=== PATIENT | male | born 1955 | race Caucasian/White ===

== ENCOUNTER 2016-12-29 02:37 | Observation (INO) ==
[2016-12-29] MEDS ORDERED: Aspirin 81 MG TAB.CHEW PO ONE (03:04)
[2016-12-29] MEDS ORDERED: Nitroglycerin 0.4 MG TAB.SUBL SL ONE (03:04)
--- NOTE | 2016-12-29 03:22 | Emergency Department Note ---
Disposition Clinical Impression: Chest pain Qualifiers: Chest pain type: precordial pain Qualified Code(s): R07.2 - Precordial pain Disposition: Admitted As Inpatient Condition: Good Referrals: NONE,PCP [Non-Partnered Physician] - Forms: ED Satisfaction Letter Chest Pain HPI - General Chief Complaint: ED Chest Pain Stated Complaint: chest pain/nausea Time Seen by Provider: 12/29/16 02:56 Source: patient, family Mode of arrival: private vehicle Limitations: no limitations Vital Signs Reviewed: Yes Nursing Notes Reviewed: Yes - History of Present Illness Pt complaint: chest pain Onset (ago): hour(s) Duration: intermittent Onset: during exertion (working outside in the yard) Pain Location: left chest Severity: moderate Severity scale (1-10): 4 Quality: aching, heaviness, dull Pain Radiation: none Improves with: rest Worsens with: exertion Associated symptoms: Denies: nausea, vomiting, diaphoresis, dyspnea, sense of impending doom, syncope, palpitations, fever, cough, leg swelling Treatments prior to arrival chest pain: none - Related Data Allergies Allergy/AdvReac Type Severity Reaction Status Date / Time No Known Allergies Allergy Verified 12/29/16 02:45 All systems ED: reviewed and negative except as stated. Constitutional: Denies: fever, chills, weakness, weight change, night sweats Eyes: Denies: vision change ENT ED: Denies: ear pain, throat pain, congestion, dysphagia Cardiovascular: Reports: as per HPI, chest pain, dyspnea on exertion. Denies: palpitations, orthopnea, edema, syncope Respiratory: Reports: dyspnea. Denies: cough, wheezes, hemoptysis, stridor, sputum production Gastrointestinal: Denies: abdominal pain, nausea, vomiting Musculoskeletal: Denies: back pain, neck pain, joint swelling, arthralgia Neurological: Denies: headache, weakness, numbness, paresthesias Hematological/Lymphatic: Denies: easy bleeding, easy bruising Chest Pain PMH - Past Medical History Medical history: Reports: asthma Surgical history: Reports: non-contributory Psychiatric history: Reports: depression - Social History Smoking Status: Never smoker Alcohol use: Reports: none Drug use: Reports: none Physical Exam - General Limitations: no limitations General appearance: alert, in no apparent distress - Head Head exam: atraumatic, normocephalic, normal inspection - Eye Eye exam: Present: normal appearance, PERRL. Absent: scleral icterus, conjunctival injection, periorbital swelling - ENT ENT exam: mucous membranes moist - Neck Neck exam: Present: normal inspection, full ROM, trachea midline. Absent: meningismus - Chest Chest inspection: Present: normal inspection, symmetric chest wall rise. Absent : tenderness - Respiratory Respiratory exam: Present: normal lung sounds bilaterally. Absent: respiratory distress, wheezes, stridor, accessory muscle use, prolonged expiratory phase - Cardiovascular Cardiovascular exam: Present: normal rhythm, tachycardia, normal heart sounds - Abdominal Exam Abdominal exam: Present: soft, Non-Tender. Absent: distention, guarding, rebound, rigidity, mass - Extremities Exam Extremities exam: Present: normal inspection, full ROM, normal capillary refill. Absent: pedal edema, calf tenderness - Back Exam Back exam: Present: normal inspection, full ROM. Absent: tenderness - Neurological Exam Neurological exam: Present: alert, oriented X3, CN II-XII intact, normal gait - Psychiatric Psychiatric exam: Present: normal affect, anxious - Skin Skin exam: Present: warm, dry, intact, normal color Course Course Narrative: Patient presents from home with his significant other for evaluation of chest pain that started yesterday around 3 PM. He was outside working in the yard when the pain began. It got better when he stopped working and rested. He has felt a little short of breath at times. He denies feeling short of breath right now. He also denies fever, chills, nausea or vomiting. He has a history of asthma and denies recent exacerbation. He denies recent leg pain or swelling procedures surgery or long sedentary periods. His EKG shows a sinus tachycardia rate of [address] elevation or depression. It is unchanged compared to previous. Patient has never had a heart Cath. His last stress test was more than five years ago. We will treat his symptoms. Obtain a chest x-ray and screening labs. Patient's troponin is normal. X-ray is essentially normal. He is feeling better after a nitroglycerin and aspirin. He has been seen by Dr. Lamas, who agrees with the assessment and plan to admit the patient for rule out Vital Signs Temperature 97.5 F L 12/29/16 02:41 Pulse Rate 113 12/29/16 02:41 Respiratory Rate 16 12/29/16 02:41 Blood Pressure 194/83 12/29/16 02:41 O2 Sat by Pulse Oximetry 95 12/29/16 02:41 Temperature 97.5 F L 12/29/16 02:41 Pulse Rate 113 12/29/16 02:41 Respiratory Rate 16 12/29/16 02:41 Blood Pressure 194/83 12/29/16 02:41 O2 Sat by Pulse Oximetry 95 12/29/16 02:41 Oxygen Delivery Oxygen Delivery Room Air Chest Pain - Medical Records Medical records reviewed: Yes I reviewed the patient's medical records. - Lab Data Lab results reviewed: Yes I reviewed the patient's lab results. Lab results narrative: Laboratory Last Values WBC 6.3 K/mcL (4.3-11.1) 12/29/16 03:15 RBC 4.65 M/mcL (4.19-5.50) 12/29/16 03:15 Hgb 13.6 g/dL (12.9-16.9) 12/29/16 03:15 Hct 40.9 % (37.5-50.1) 12/29/16 03:15 MCV 88.0 fL (83.0-100.0) 12/29/16 03:15 MCH 29.2 pg (28.0-33.3) 12/29/16 03:15 MCHC 33.3 g/dL (31.6-35.5) 12/29/16 03:15 RDW 13.2 % (11.5-14.5) 12/29/16 03:15 Plt Count 204 K/mcL (140-400) 12/29/16 03:15 MPV 8.7 fL (9.4-12.4) L 12/29/16 03:15 Immature Gran % 0.3 % (0-4) 12/29/16 03:15 Seg Neutrophils % 53.7 % 12/29/16 03:15 Lymphocytes % 33.5 % 12/29/16 03:15 Monocytes % 9.6 % 12/29/16 03:15 Eosinophils % 2.6 % 12/29/16 03:15 Basophils % 0.3 % 12/29/16 03:15 Neutrophils # 3.4 K/mcL (1.6-8.9) 12/29/16 03:15 Lymphocytes # 2.1 K/mcL (0.6-4.6) 12/29/16 03:15 Monocytes # 0.6 K/mcL (0.0-1.3) 12/29/16 03:15 Eosinophils # 0.2 K/mcL (0.0-0.6) 12/29/16 03:15 Basophils # 0.0 K/mcL (0.0-0.2) 12/29/16 03:15 PT 10.8 Seconds (9.4-12.1) 12/29/16 03:15 INR 1.0 12/29/16 03:15 APTT 32.1 Seconds (26.0-36.0) 12/29/16 03:15 Sodium 138 mEq/L (136-145) 12/29/16 03:15 Potassium 3.8 mEq/L (3.5-4.5) 12/29/16 03:15 Chloride 106 mEq/L (98-109) 12/29/16 03:15 Carbon Dioxide 24 mEq/L (19-29) 12/29/16 03:15 BUN 25 mg/dL (8-26) 12/29/16 03:15 Creatinine 1.16 mg/dL (0.72-1.25) 12/29/16 03:15 Est GFR ( Amer) > 60 (> 60) 12/29/16 03:15 Est GFR (Non-Af Amer) > 60 (> 60) 12/29/16 03:15 BUN/Creatinine Ratio 22 (6-26) 12/29/16 03:15 Glucose 103 mg/dL (70-99) H 12/29/16 03:15 Calculated Osmolality 291 (280-300) 12/29/16 03:15 Calcium 9.5 mg/dL (8.6-10.8) 12/29/16 03:15 Troponin I 0.01 ng/mL (0-0.03) 12/29/16 03:15 B-Natriuretic Peptide 16 pg/mL (0-100) 12/29/16 03:15 - Radiology Data Radiology results reviewed: Yes I reviewed the patient's radiology results. Chest X-Ray 12/29/16 02:45 IMPRESSION: 1. Mild left basilar atelectasis. 2. No other cardiopulmonary disease. D/ / Yousuf Seals MD / Yousuf Seals MD Interpreting Provider: Yousuf Seals MD - EKG Data EKG attestation: Yes I reviewed and interpreted this EKG. EKG results narrative: Chest X-Ray 12/29/16 02:45 IMPRESSION: 1. Mild left basilar atelectasis. 2. No other cardiopulmonary disease. D/ / Yousuf Seals MD / Yousuf Seals MD Interpreting Provider: Yousuf Seals MD shows normal: sinus rhythm Rate: tachycardia Rhythm: NSR [place]/QRS: normal When compared to previous EKG there are: no significant changes Interpretation: unchanged when compared to prior tracing (date) Heart Score - Score History: Moderately Suspicious EKG: Normal Age: 45-65 Risk Factors: 1-2 risk factors Troponin: Less than normal limit HEART Score Total: 3
[2016-12-29 03:24] LABS: Basophils % 0.3 %; Eosinophils # 0.2 K/mcL (0.0-0.6); Eosinophils % 2.6 %; Hematocrit 40.9 % (37.5-50.1); Hemoglobin 13.6 g/dL (12.9-16.9); Immature Granulocytes % 0.3 % (0-4); Lymphocytes # 2.1 K/mcL (0.6-4.6); Lymphocytes % 33.5 %; Mean Corpuscular HGB Conc 33.3 g/dL (31.6-35.5); Mean Corpuscular Hemoglobin 29.2 pg (28.0-33.3); Mean Platelet Volume 8.7 fL (9.4-12.4); Monocytes # 0.6 K/mcL (0.0-1.3); Monocytes % 9.6 %; Neutrophils # 3.4 K/mcL (1.6-8.9); Platelet Count 204 K/mcL (140-400); Red Blood Count 4.65 M/mcL (4.19-5.50); Red Cell Distribution Width 13.2 % (11.5-14.5); Segmented Neutrophils % 53.7 %
[2016-12-29 03:27] LABS: Prothrombin Time 10.8 Seconds (9.4-12.1)
[2016-12-29 03:30] LABS: Activated Partial Thrombo Time 32.1 Seconds (26.0-36.0)
[2016-12-29 03:35] LABS: BUN/Creatinine Ratio 22 (6-26); Blood Urea Nitrogen 25 mg/dL (8-26); Calcium 9.5 mg/dL (8.6-10.8); Carbon Dioxide 24 mEq/L (19-29); Chloride 106 mEq/L (98-109); Glucose 103 mg/dL (70-99); Osmolality,Calculated 291 (280-300); Potassium 3.8 mEq/L (3.5-4.5); Sodium 138 mEq/L (136-145); eGFR For African Americans > 60 (> 60); eGFR For Non-African Americans > 60 (> 60)
[2016-12-29] MEDS ORDERED: Naloxone 0.4 MG/ML INJ IVP PRN (04:46)
[2016-12-29] MEDS ORDERED: Nitroglycerin 0.4 MG TAB.SUBL SL PRN (04:51)
--- NOTE | 2016-12-29 04:55 | Internal Med History&Physical ---
Date of Encounter: 12/29/16 Time of Encounter: 04:53 Assessment and Plan (1) Chest pain Current visit: Yes Status: Acute admit for stress testing in the morning. Exercise nuclear testing since he is able to exercise per self report Qualifiers: Chest pain type: precordial pain Qualified Code(s): R07.2 - Precordial pain (2) HTN (hypertension) Current visit: Yes Status: Acute continue med Qualifiers: Qualified Code(s): I10 - Essential (primary) hypertension (3) HLD (hyperlipidemia) Current visit: Yes Status: Acute continue statin Qualifiers: Qualified Code(s): E78.5 - Hyperlipidemia, unspecified (4) Asthma Current visit: Yes Status: Acute singular , qvar Qualifiers: Qualified Code(s): J45.909 - Unspecified asthma, uncomplicated Internal Medicine - H&P: HPI Chief complaint: chest pain History of present illness: Mr. Lee is a 61 year old male HTN, HLD, asthma who presents with chest pain evaluation. He reports feeling chest discomfort associated with SOB sensation yesterday at around 2 pm when he was on his feet walking while working. Described it as a heaviness sensation with aching afterwards. No pleuritic component. Last 1 hour after onset. On review, he has a subacute hx of chest symptoms that did not appear to be related to exertion. In the ED, EKG with sinus tachy, NSR, no overt ST-T changes, trop 0.01, CXR clear. Past Med Surg Social Fam HX - Past Medical History Medical history: asthma Psychiatric history: depression - Past Surgical History Surgical History: non-contributory - Social History Smoking Status: Never smoker Alcohol use: none Drug use: none Internal Medicine - H&P: Meds Allergies No Known Allergies Allergy (Verified 12/29/16 02:45) All Systems PM: A 10-system review of systems was performed and is negative for pertinent findings except as documented above in the HPI. Review of systems: ROS 14 point review of systems reviewed as best as possible given presentation. Pertinent positive or negative as per HPI or otherwise reviewed as negative - Constitutional Vitals: Temp Pulse Resp BP Pulse Ox 97.5 F L 85 16 126/80 98 12/29/16 02:41 12/29/16 04:46 12/29/16 04:46 12/29/16 04:46 12/29/16 04:46 Exam: General - AAO x 3 Psych - Appropriate affect/speech. No agitation Eyes - WILIAM. Eye lids intact. No scleral icterus ENT - Oral mucosa pink, dentition intact. External ear clear/dry/intact. No thyromegaly Lymphatics - No cervical/inguinal lympadenopathy Neuro - No gross peripheral or central neuro deficits with intact CN 2-12 exam Heart - Sinus. RRR. S1 and S2 present. No added HS/murmurs appreciated. No elevated JVD appreciated. No calf swellings/erythema Lung - Adequate air entry b/l, No crackes/wheezes appreciated GI - Soft, non-tender. No hepatosplenomegaly/ascities. BS+ - No CVA/suprapubic tenderness or palpable bladder distension Skin - Intact. No rash/petechiae/ecchymosis. Warm extremities MSK - Joints with normal ROM. No joint swellings Internal Med - H&P Results - Labs CBC & Chem 7: 12/29/16 03:15 12/29/16 03:15
[2016-12-29] MEDS: Beclomethasone 80mcg MDI IH SCH ×2 (08:23→21:26)
[2016-12-29] MEDS: Aspirin Enteric Coated 81 MG Tablet PO SCH (11:41)
--- NOTE | 2016-12-29 12:30 | Nuclear Medicine Stress Report ---
Exercise Nuclear Stress Name: Kim Lee Date of Study: 12/29/2016 Date: 1955 Ht: 68.0 in Medical Record#: [id number] Age: 61 Wt: 205.0 lb Gender: Male Order #: [id number] Location: [facility] IP Room: [facility] Supervising Provider: Abebe Carr CNP Reading Physician: Td Valenzuela MD, [facility] Ordering Physician: Deirdre Goins CNP Primary Care Physician: Paul Vu MD Stress Technologist: Lilliana Vasquez RRT Production Tool Engineer: Alexis Welch Indications: Shortness of breath Impression: Perfusion imaging was negative for ischemia or infarct. SDS - 0 Exercise capacity was average. Normal hemodynamic response. Patient had chest pain with stress. Gated EF = >70%. The LV is not dilated. Exercise ECG was negative for diagnostic ischemia with baseline LVH. Occasional PACs and short 8 beat run of atrial tachycardia during recovery. There is evidence of TID. Patient's left ventricular hypertrophy and use of motion correction of rest images with quantitative TID of 2 (with qualitative TID) unlikely to be accurate. However, if clinical suspicion persists, particularly with ongoing symptoms, please consider cardiology referral. History: Hypertension Hypercholesteremia Stress Test Summary: Stress Test Type: Treadmill Protocol: Td Baseline Information: Initial Heart Rate: 90 Blood Pressure: 146/74 Stress Information: Stress Time: 7 min 01 sec Test Terminated Due to (primary): Dyspnea Maximum Blood Pressure: 168/92 Maximum Heart Rate: 162 Percent Maximum Heart Rate Achieved: 103 Double Product: 04906 METS Reached: 8 Symptoms: Shortness of breath, Chest pain Nuclear Summary: SPECT myocardial perfusion imaging using Tc99m Sestamibi given intravenously was performed at rest and following cardiac stress testing. The resting images were obtained following initial dose of 11.4 mCi. Following stress an additional dose of 35.6 mCi was given at peak exercise or 30 seconds post regadenoson infusion. Medication Given: Time Medication Dose Units Route Findings: Stress Note * Resting ECG demonstrated normal sinus rhythm. * No baseline arrhythmias were noted. * Exercise ECG is negative for ischemia. * Occasional PACs noted during stress. * The exercise capacity was average. * Patient had chest pain/pressure during stress. Hemodynamic responses * Normal hemodynamic responses to exercise. Study Quality * Study quality is average. Gated EF > 70% * Gated EF > 70%. Left Ventricle * The left ventricle is not dilated. NORMALS * Normal wall motion. * Normal segmental perfusion in stress. * Normal Segmental Perfusion in rest. TID * There is transient ischemic dilatation. TID ratio * TID ratio = 2. Updated by Td Valenzuela MD, [facility] on 12/29/2016 12:19:17 PM electronically signed on 12/29/2016 12:23:45 PM with status of Final
[2016-12-29] MEDS: sulfaSALAzine 500 MG TABLET PO SCH ×2 (14:22→20:57)
[2016-12-29] MEDS: Isosorbide MONOnitrate (24 HR) 30 MG TAB.ER.24H PO SCH (14:22)
--- NOTE | 2016-12-29 16:22 | Event Note ---
Date of Encounter: 12/29/16 Time of Encounter: 12:30 (and 1445) Patient seen and examined after his stress test. On examination, patient is sitting upright in bed conversing with his . Patient denied pain but still felt as if he had discomfort in his chest. He states that he felt as if somebody was squeezing his chest and as if someone was sitting on his chest. He states the pressure and squeezing sensation has been constant for quite some time. He states that it appears to be worsening. He also states his dyspnea with exertion is worsening and he states that he gets out of breath very quickly which is not his norm. He is a never smoker and states he has a history of asthma. He takes Qvar, albuterol, and Singulair. On examination, slightly decreased breath sounds noted bilateral lower lobes, respirations even and unlabored. No hypoxia. We will treat with prednisone and DuoNeb's and monitor his response. Chest x-ray negative. Stress test revealing ejection fraction greater than 70% but with possible TID. His blood pressure was uncontrolled upon arrival, now controlled. No recent lipid panel, will obtain one for the morning. Given that he is still experiencing worsening chest pressure and worsening dyspnea on exertion, cardiology was consulted. Recommendation to start him on Imdur 30mg daily, place NPO at midnight, and cardiology will see him in the morning. Patient and family updated and denied concerns at this time. ITS Impressions Chest X-Ray 12/29/16 02:45 IMPRESSION: 1. Mild left basilar atelectasis. 2. No other cardiopulmonary disease. D/ / Yousuf Seals MD / Yousuf Seals MD Interpreting Provider: Yousuf Seals MD Exercise nuclear stress impression: Perfusion imaging was negative for ischemia or infarct. SDS-0. Exercise capacity was average. Normal hemodynamic response. Patient had chest pain with stress. Gated ejection fraction is greater than 70%. The LV is not dilated. Exercise ECG was negative for diagnostic ischemia with baseline LVH. Occasional PACs and a short 8 beat run of atrial tachycardia during recovery. There is evidence of TID. Patient's left ventricular hypertrophy and the use of motion correction of rest images with qualitative TID of 2 (with qualitative TID) unlikely to be accurate. However, if clinical suspicion persists, particularly with ongoing symptoms, please consider cardiology referral.
[2016-12-29] MEDS: Ipratropium/Albuterol Neb 3 ML IH SCH ×2 (17:02→21:26)
[2016-12-29] MEDS: predniSONE 20 MG TABLET PO SCH (17:05)
[2016-12-30] MEDS: Ipratropium/Albuterol Neb 3 ML IH SCH ×3 (03:58→16:51)
[2016-12-30 04:37] LABS: Chol/HDL Ratio 3.6 (0-4.9)
--- NOTE | 2016-12-30 08:06 | Cardiology Consult Note ---
Date of Encounter: 12/30/16 Time of Encounter: 08:15 Assessment and Plan (1) Chest pain Current Visit: Yes Status: Acute Per Cardiology: Troponins negative 2. Patient experiencing increased frequency of exertional chest pain relieved with rest and overall increase in fatigue. Patient had exercise nuclear stress test which showed perfusion imaging negative for ischemia or infarct with normal hemodynamic response with EF gated at 70%. Patient did have occasional PACs and short 8 beat run of atrial tachycardia and recovery. Patient noted to have evidence of TID on report. Lengthy discussion with patient and regarding continuing to monitor and observe with long- acting nitrate versus further ischemic evaluation. Patient and prefer to proceed with catheterization for further evaluation of symptoms. On aspirin, statin, JHONNY inhibitor, and long-acting nitrate. Chest pain symptoms appear improved with addition of nitrates. Further recommendations after catheterization. Reviewed and discussed with Dr. Valenzuela and Dr. Ilir Stoddard. Qualifiers: Chest pain type: precordial pain Qualified Code(s): R07.2 - Precordial pain (2) FERNANDEZ (dyspnea on exertion) Current Visit: Yes Status: Acute Per Cardiology: Expressing increased dyspnea on exertion. Reports compliance with asthma medications at home. Discussion w patient/family: The assessment and plan as outlined above was discussed with the patient and/or family members who expressed understanding and agreement. All questions were answered. Thank you for involving us in the care of your patient. Please call with any questions. History of Present Illness Consult date: 12/30/16 Consult reason: CP Chief complaint: CP History of present illness: Mr. Lee is a 61 year old male with a relevant past medical history of asthma , depression, hyperlipidemia, and hypertension. Cardiology consult for recurrent chest pain and borderline stress test results. Patient seen today with at bedside. He reports over the past few weeks increased symptoms of midsternal chest heaviness/aching worse with exertion and relieved with rest. He reports with the symptoms he experiences onset of shortness of breath. He denies any palpitations, syncope or falls. Reports intermittently episodes some dizziness but sometimes occur with the symptoms sometimes occur independently. He denies any recent infectious process. He denies any active bleeding or blood loss. Does report increased fatigue over the past few weeks as well. Denies any known history of CAD and has never had heart catheterization. Denies any family history. Has never smoked. Patient reports dull ache to his mid sternal chest today upon exam and did not worsen with deep inspiration, sitting upright, or palpation. Past Med Surg Social Fam HX - Past Medical History Source: patient, old records reviewed Medical history: asthma, hyperlipidemia, hypertension Psychiatric history: depression - Past Surgical History Surgical History: non-contributory - Social History Smoking Status: Never smoker Smokeless Tobacco Status: No Alcohol use: none Drug use: none - Family History Father Living Status: Hx Family Cardiac Disorders: Yes (blood clot to heart) Medications and Allergies Albuterol Sulfate [Albuterol Inhaler] 2 puff IH Q4-6H PRN 12/29/16 [History] Aspirin [Lo-Dose Aspirin EC] 81 mg PO DAILY 12/29/16 [History] Beclomethasone Diprop 80mcg [QVAR 80 mcg] 1 - 2 puff IH BID 12/29/16 [History] Cholecalciferol (D-3) [Vitamin D] 5,000 unit PO DAILY 12/29/16 [History] Levothyroxine [Synthroid] 150 mcg PO DAILY 12/29/16 [History] Lisinopril [Zestril] 5 mg PO DAILY 12/29/16 [History] Montelukast [Singulair] 10 mg PO DAILY 12/29/16 [History] Simvastatin [Zocor] 20 mg PO QPM 12/29/16 [History] sulfaSALAzine [Sulfasalazine] 500 mg PO BID 12/29/16 [History] Allergies No Known Allergies Allergy (Verified 12/29/16 02:45) All Systems Review: A 10-system review of systems was performed and is negative for pertinent findings except as documented above in the HPI. - Constitutional Constitutional: fatigue - Cardiovascular Cardiovascular: as per HPI, chest pain with exertion, dyspnea on exertion, lightheadedness Physical Examination Vital Signs, Last 4 Hours Temp Pulse Resp BP Pulse Ox 12/30/16 06:45 97.9 F 65 14 120/67 96 General: Conversant, No Apparent Distress HEENT: Atraumatic, Normocephaly, Mucus Membranes Moist Neck: No JVD, Normal carotid pulses Cardiac: Reg Rate and Rhythm, Normal S1 and S2, No Murmur Lungs: Normal Breath Sounds, No Wheeze, Rales, Rhonchi Neuro: Alert and responsive, No focal deficits noted Abdomen: Soft, Non-Tender Skin: No rashes noted on visualized skin Musculoskeletal: No Chest Wall Tenderness Extremities: No Clubbing, No Cyanosis, No Edema, Normal Pulses Results 12/29/16 03:15 12/29/16 03:15 Lab Results Laboratory Tests 12/29/16 12/29/16 12/29/16 03:15 03:15 03:15 INR 1.0 D-Dimer 289 Troponin I 0.01 B-Natriuretic Peptide 16 LDL Cholesterol, Calc 12/29/16 12/30/16 07:48 03:49 INR D-Dimer Troponin I 0.00 B-Natriuretic Peptide LDL Cholesterol, Calc 85 ITS Impressions Chest X-Ray 12/29/16 02:45 IMPRESSION: 1. Mild left basilar atelectasis. 2. No other cardiopulmonary disease. D/ / Yousuf Seals MD / Yousuf Seals MD Interpreting Provider: Yousuf Seals MD Intake & Output 12/27/16 12/28/16 12/29/16 12/30/16 23:59 23:59 23:59 23:59 Intake Total 600 / 600 Balance 600 / 600 Weight 92.8 kg 91.6 kg Active Medications Albuterol/Ipratropium (Duoneb) 3 ml IH [id number] [facility] Stop: 06/30/17 16:31 Last Admin: 12/30/16 03:58 Dose: 3 ml Aspirin (Aspirin Ec) 81 mg PO DAILY [facility] Stop: 06/30/17 09:01 Last Admin: 12/29/16 11:41 Dose: 81 mg Beclomethasone Dipropionate (Qvar 80 Mcg) 1 puff IH BIDR [facility] PRN Reason: Protocol Stop: 06/30/17 10:01 Last Admin: 12/29/16 21:26 Dose: 1 puff Isosorbide Mononitrate (Imdur) 30 mg PO DAILY [facility] Stop: 06/30/17 13:31 Last Admin: 12/29/16 14:22 Dose: 30 mg Levothyroxine Sodium (Synthroid) 150 mcg PO 0630 [facility] Stop: 06/30/17 06:31 Last Admin: 12/30/16 05:48 Dose: 150 mcg Lisinopril (Zestril) 5 mg PO DAILY [facility] PRN Reason: Protocol Stop: 06/30/17 09:01 Last Admin: 12/29/16 11:41 Dose: 5 mg Montelukast Sodium (Singulair) 10 mg PO QPM [facility] Stop: 06/30/17 18:01 Last Admin: 12/29/16 17:05 Dose: 10 mg Naloxone HCl (Narcan) 0.4 mg IVP Q2MIN PRN PRN Reason: Opioid Reversal Stop: 06/30/17 04:47 Nitroglycerin (Nitroglycerin) 0.4 mg SL Q5MIN PRN PRN Reason: Chest Pain Stop: 06/30/17 04:52 Prednisone (Prednisone) 40 mg PO DAILY [facility] Stop: 06/30/17 16:31 Last Admin: 12/29/16 17:05 Dose: 40 mg Simvastatin (Zocor) 20 mg PO HS [facility] PRN Reason: Protocol Stop: 06/30/17 21:01 Last Admin: 12/29/16 20:57 Dose: 20 mg Sulfasalazine (Sulfasalazine) 500 mg PO BID [facility] Stop: 06/30/17 09:01 Last Admin: 12/29/16 20:57 Dose: 500 mg - Imaging and Cardiology Chest Xray: report reviewed Stress Test: report reviewed Cardiac cath: pending - EKG Interpretation EKG results cardiology: personally reviewed, normal ECG, sinus rhythm, no diagnostic ischemia Consult Discharge Plan - Plan Referrals: Paul Vu MD [Primary Care Provider] - 01/03/17 3:00 pm (Web requested an appoinment, will call with a time and date)
[2016-12-30] MEDS: sulfaSALAzine 500 MG TABLET PO SCH (09:25)
[2016-12-30] MEDS: Aspirin Enteric Coated 81 MG Tablet PO SCH (09:25)
[2016-12-30] MEDS: Isosorbide MONOnitrate (24 HR) 30 MG TAB.ER.24H PO SCH (09:25)
[2016-12-30] MEDS: predniSONE 20 MG TABLET PO SCH (09:25)
[2016-12-30] MEDS: Beclomethasone 80mcg MDI IH SCH (10:22)
[2016-12-30] MEDS ORDERED: 0.9 % Sodium Chloride 1,000 ML ONE ×2 (14:31→14:44)
[2016-12-30] MEDS ORDERED: Heparin 1,000 UNITS/500 mL NS 500 ML ONE (14:31)
[2016-12-30] MEDS ORDERED: *HR* Heparin 10,000 UNIT/10 ML VIAL ONE (14:31)
[2016-12-30] MEDS ORDERED: *HR* FentaNYL (PF) 100 MCG/2 ML VIAL ONE (14:39)
[2016-12-30] MEDS ORDERED: *HR* Midazolam HCl 2 MG/2 ML VIAL ONE (14:39)
--- NOTE | 2016-12-30 14:45 | Pre-Sedation Evaluation ---
Pre-sedation evaluation - Pre-sedation checklist Date of procedure: 12/30/16 Procedure: heart cath Recent Vitals: Last Vital Signs Temp 97.8 F 12/30/16 11:05 Pulse 82 12/30/16 11:05 Resp 14 12/30/16 11:05 BP 125/61 12/30/16 11:05 Pulse Ox 93 12/30/16 11:05 H&P (including ROS) documented in medical record: Yes Previous reaction to sedatives/anesthetics: No Dietary Status: NPO after Midnight Dentition: No loose teeth or bridges, full dentition ASA Classification *see protocol: CLASS II-Mild systemic disease Plan of Care: Pt appropriate candidate for procedure/moderate/conscious sedation , Risks/benefits of procedure/sedation discussed w/ patient/family
[2016-12-30] MEDS ORDERED: Nitroglycerin 1,000 MCG/10 ML VIAL IV ONE (14:49)
[2016-12-30] MEDS ORDERED: Verapamil 5 MG/2 ML VIAL ONE (14:49)
[2016-12-30] MEDS ORDERED: Acetaminophen 325 MG TABLET PO PRN (15:34)
[2016-12-30] MEDS ORDERED: Ondansetron 4 MG/2 ML VIAL IVP PRN (15:34)
--- NOTE | 2016-12-30 15:49 | Invasive Diagnostic Lab Proc ---
Name: Kim Lee Date of Study: 12/30/2016 Date: 1955 Ht: 68.1in Medical Record#: [id number] Age: 61 Wt: 202.83lb Gender: Male BSA: 2.06 Order #: [id number] BMI: 30.74 Physicians Procedure Physician: Td Valenzuela MD, [facility] Referring MD: Referring MD: Staff Name Position Time In Se Perez RT (R) Scrub 02:46 PM Bassam Whitfield RN Sql Consultant 02:46 PM Ivanna Stewart RN Sql Consultant 02:46 PM Rosa Yusuf RN Monitor 02:46 PM Ciara Marcus RN Nurse 02:46 PM Indications Indication Abnormal Test - Stress Procedures Performed Procedure L HRT ARTERY/VENTRICLE ANGIO Pre-Procedure Checklist Informed consent is complete signed and on chart. H&P is on chart. ID band is on and ID verified with patient. Patient NPO for procedure The procedure was described for the patient and questions were answered. Blood Pressure: 120/67 ECG is on chart. Plan of Care Patient will tolerate the procedure without complications. Adequate level of comfort will be maintained. Hemodynamics will remain stable Patient will recover from procedure without complications. Respiratory function will be maintained. Cardiac rhythm will remain stable. Patient temperature will be maintained. Patient and/or family have verbalized understanding of the procedure. Patient Education Chief Complaint/Reason for Test: Cardiac Cath Developmental Category: Adult (18-64 years) Developmentally Appropriate for Age: Yes Learning Barriers: None Education Needs: Procedure Education Method: Verbal Information Taught: Cardiac Cath Educational Evaluation: Able to repeat information Intravenous Access Time IV Size Location DC'd Fluid/Drip Rate Units RN 02:45 PM 18g 1 1/" Patent On Arrival Lt Arm 0.9NaCl 25 ml/hr Ivanna Stewart RN Allergies NKDA Vital Signs Time BP (mmHg) HR (bpm) O2 Sat. RR (bpm) LOC 02:54 PM / % 5 = Fully awake and oriented or at pre-proc level 02:54 PM / % 5 = Fully awake and oriented or at pre-proc level 03:05 PM / % 5 = Fully awake and oriented or at pre-proc level 02:50 PM 131 / 68 97 94 % 19 02:55 PM 112 / 62 88 94 % 15 03:00 PM 117 / 53 74 96 % 16 03:05 PM 110 / 60 85 95 % 17 03:10 PM 108 / 66 87 97 % 19 03:15 PM 112 / 65 92 97 % 20 03:20 PM 125 / 64 107 96 % 20 03:25 PM 122 / 66 96 98 % 18 03:20 PM / % 5 = Fully awake and oriented or at pre-proc level Procedural Medications Time Medication Dose Units Method Given By 02:47 PM Oxygen 2 L/min nasal cannula Bassam Whitfield RN 02:48 PM Versed 2 mg Intravenous Bassam Whitfield RN 02:48 PM Fentanyl 50 mcg Intravenous Bassam Whitfield RN 03:02 PM Lidocaine 2% 0.5 ml Subcutaneous Td Valenzuela MD, [facility] 03:03 PM Heparin 4000 units Nitroglycerin 200 mcg Verapamil 2.5 mg Intraarterial Td Valenzuela MD, [facility] 03:10 PM Lidocaine 2% 19 ml Subcutaneous Td Valenzuela MD, [facility] ASA Classification: CLASS II- Mild systemic disease (i.e. well-controlled diabetes, hypertension, asthma, cigarette smoking) Zeina Score Preprocedure Postprocedure Activity 2- Moves 4 extremities sustained head lift Activity 2- Moves 4 extremities sustained head lift Circulation 2- SBP +/= 20 points of pre-anesthetic level Circulation 2- SBP +/= 20 points of pre-anesthetic level Consciousness 2- Awake and alert oriented x 3 Consciousness 2- Awake and alert oriented x 3 O2 Saturation 2- Able to maintain O2 satruation of 92% on room air O2 Saturation 2- Able to maintain O2 satruation of 92% on room air Respiratory 2- Able to deep breathe and cough well Respiratory 2- Able to deep breathe and cough well Total Score 10 Total Score 10 Contrast Agent: Isovue Diagnostic Contrast: 79 ml Total Contrast: 79 ml Fluoro Dose: 231 mGy Procedure Log Time Note Enter By 02:46 PM Pt arrived to [address] at 14:46 scoates 02:46 PM Se Perez RT (R) Position: Scrub Time in: 14:46 scoates 02:46 PM Bassam Whitfield RN Position: Sql Consultant Time in: 14:46 scoates 02:46 PM Ivanna Stewart RN Position: Sql Consultant Time in: 14:46 scoates 02:46 PM Rosa Yusuf RN Position: Monitor Time in: 14:46 scoates 02:46 PM Ciara Marcus RN Position: Nurse Time in: 14:46 scoates 02:47 PM Patient charges- Angio tray pack, Navilyst 3mm J, Pulse Oximetry and ACIST tubing and transducer scoates 02:47 PM Case Delayed No scoates 02:47 PM Hair removed from procedure site in procedure lab using clippers. Right wrist and right groin prepped with Chloraprep by Se Perez (R), safety strap applied then patient was draped. Skin intact. scoates 02:47 PM Physician arrived 14:47 scoates 02:47 PM ASA Class CLASS II- Mild systemic disease (i.e. well-controlled diabetes, hypertension, asthma, cigarette smoking) scoates 02:47 PM Meet and greet completed scoates 02:47 PM Sign in performed according to hospital policy. scoates 02:47 PM Procedure start 14:47 scoates 02:47 PM Time: 14:47 Oxygen on at 2 L/min per nasal cannula by Bassam Whitfield RN scoates 02:48 PM CathStat 02:48 PM Vitals capture started with the following parameters, Patient=Adult, Interval=5 min, Initial Fwihrbbe=675 mmHg, Deflation Rate=5 mmHg, Cuff placed on Left Arm 02:48 PM Time: 14:48 Versed 2 mg Intravenous Given by Bassam Whitfield RN scoates 02:48 PM Time: 14:48 Fentanyl 50 mcg Intravenous Given by Bassam Whitfield RN scoates 02:50 PM Vitals capture started with the following parameters, Patient=Adult, Interval=5 min, Initial Oslfqeyr=555 mmHg, Deflation Rate=5 mmHg, Cuff placed on Left Arm 02:50 PM HR=97 bpm, DTOI=318/68 mmhg, SpO2=94.0 %, Resp=19 B/min, Comment=SR 02:51 PM Recorded ECG: HR=96 Condition=Condition 1 02:54 PM Pressure channel 1 zeroed. 02:54 PM Time: 14:54 Patient comfortable and pain free: Yes ejohnson 02:54 PM Time: 14:54LOC: 5 = Fully awake and oriented or at pre-proc level ejohnson 02:55 PM HR=88 bpm, ZVOE=090/62 mmhg, SpO2=94 %, Resp=15 B/min 03:00 PM HR=74 bpm, CMBW=830/53 mmhg, SpO2=96 %, Resp=16 B/min 03:02 PM Time out performed according to hospital policy ejohnson 03:02 PM Time: 15:02 0.5 ml Lidocaine 2% to right radial Subcutaneous Given by Td Valenzuela MD, [facility] ejohnson 03:03 PM Access obtained by percutaneous puncture. 6Fr 10cm Terumo Glidesheath sheath placed in right Radial artery. [id number] ejohnson 03:03 PM Time: 15:03 Patient given 4,000 units Heparin, 200 mcg Nitroglycerin, and 2.5 mg Verapamil Intraarterial by Td Valenzuela MD, [facility] ejohnson 03:04 PM 5Fr TIG catheter inserted over the wire DN ejohnson 03:05 PM Time: 14:54 Patient comfortable and pain free: Yes ejohnson 03:05 PM Time: 14:54LOC: 5 = Fully awake and oriented or at pre-proc level ejohnson 03:05 PM HR=85 bpm, VRCZ=698/60 mmhg, SpO2=95.0 %, Resp=17 B/min, Comment=SR 03:06 PM Catheter removed ejohnson 03:10 PM Time: 15:10 19 ml Lidocaine 2% to right groin Subcutaneous Given by Td Valenzuela MD, [facility] ejohnson 03:10 PM Access obtained by percutaneous puncture. 5Fr 10cm Terumo Brohman sheath placed in right Femoral artery. [id number] ejohnson 03:10 PM HR=87 bpm, CXJK=110/66 mmhg, SpO2=97.0 %, Resp=19 B/min, Comment=SR 03:10 PM 5Fr FL 4 catheter inserted over the wire DN ejohnson 03:11 PM Pressure channel 1 zeroed. 03:12 PM Recorded Pressure: Ao, HR=86, Condition=Condition 1 (Aorta) Ao 82/54/66 03:13 PM LCA angiography performed in multiple views. ejohnson 03:13 PM Catheter removed ejohnson 03:14 PM 5Fr FR 4 catheter inserted over the wire DN ejohnson 03:14 PM Recorded Pressure: Ao, HR=90, Condition=Condition 1 (Aorta) Ao 80/57/68 03:15 PM RCA angiography performed in multiple views. ejohnson 03:15 PM HR=92 bpm, AAAC=595/65 mmhg, SpO2=97.0 %, Resp=20 B/min, Comment=SR 03:16 PM Catheter removed ejohnson 03:17 PM 5Fr Pigtail catheter inserted over the wire [facility] ejohnson 03:17 PM Catheter selectively placed in left ventricle ejohnson 03:17 PM Recorded Pressure: LV, HR=99, Condition=Condition 1 (Left Ventricle) LV 103/-5/44 03:18 PM Bolus angiogram of left Ventricle complete: 10 ml/sec for a total of 30 mls ejohnson 03:18 PM Recorded Pressure: LV, Ao, FH=563, Condition=Condition 1 (Left Ventricle) LV 107/27/31, (Aorta) Ao 82/46/59 03:18 PM 5Fr 3DRC catheter inserted over the wire [id number] ejohnson 03:18 PM Catheter removed ejohnson 03:20 PM Recorded Pressure: Ao, HR=93, Condition=Condition 1 (Aorta) Ao 78/53/64 03:20 PM Time: 15:05LOC: 5 = Fully awake and oriented or at pre-proc level ejohnson 03:20 PM Time: 15:05 Patient comfortable and pain free: Yes ejohnson 03:20 PM Coronary Dominance: right ejohnson 03:20 PM KG=297 bpm, KYJI=632/64 mmhg, SpO2=96.0 %, Resp=20 B/min, Comment=SR 03:20 PM Lesion found in Proximal RCA. Pre Stenosis: 30 Pre FEDERICO Flow: 3: Complete and Brisk Flow/Perfusion ejohnson 03:20 PM Lesion found in Mid RCA. Pre Stenosis: 40 Pre FEDERICO Flow: 3: Complete and Brisk Flow/Perfusion ejohnson 03:21 PM Right Coronary, Right Posterior Descending Arteries with Right Posterolateral and Acute Marginal branches with 40 % stenosis. ejohnson 03:21 PM Catheter removed ejohnson 03:21 PM Bolus angiogram of right Femoral complete: 3 ml/sec for a total of 6 mls ejohnson 03:22 PM Procedure completed at 15:22 ejohnson 03:23 PM Sign out completed: Radiation Dose 231.03 mGy Fluoro Time: 3.3 Isovue 370 - 200ml contrast 79 ml given by Td Valenzuela MD, [facility]. Complications: NoneCardiac Rehab Consult needed: NoConfirmed administered medications: Yes ejohnson 03:24 PM Isovue 370 - 200ml,1 Bottle(s) used. ejohnson 03:24 PM Arterial sheath pulled, Mynx closure device used and was Successful S/N. ejohnson 03:24 PM Post ECG NSR ejohnson 03:24 PM Post Blood Pressure 125/64 ejohnson 03:25 PM 15:25 Post Pulses Bilateral DP & PT 2+ ejohnson 03:25 PM HR=96 bpm, ZOFY=014/66 mmhg, SpO2=98.0 %, Resp=18 B/min, Comment=SR 03:26 PM Information taught Cardiac Cath and Mynx ejohnson 03:26 PM Education needs Plan of Care and Responsibilities of Patient in Care ejohnson 03:26 PM Learning barriers :None ejohnson 03:26 PM Education Methods Verbal ejohnson 03:26 PM Education evaluation Able to repeat information ejohnson 03:26 PM Site status No bleeding/hematoma - Rt Groin as reported by Se Perez RT (R) at 15:26 ejohnson 03:26 PM Arterial sheath pulled, Vasc Band closure device used and was Successful S/N. ejohnson 03:27 PM Site status No bleeding/hematoma - Rt Wrist as reported by Se Perez RT (R) at 15:26 ejohnson 03:27 PM Opsite applied right groin ejohnson 03:28 PM Plavix, Effient or Brilinta given No ejohnson 03:28 PM Family placed in consult room. ejohnson 03:29 PM 10 ml air in Vasc Band. ejohnson 03:35 PM Time: 15:20 Patient comfortable and pain free: Yes ejohnson 03:35 PM Time: 15:20LOC: 5 = Fully awake and oriented or at pre-proc level ejohnson 03:38 PM Report given to Mireya MORENO Pt taken to 3B Room #35. 15:38 ejohnson 03:39 PM Complications: None ejohnson 03:39 PM Patient out of room: 15:39 ejohnson Complications Complication None Hemodynamics Pressures Site Systolic/A Wave Diastolic/V Wave Mean AO 82 54 66 AO 80 57 68 LV 103 -5 44 LV 107 27 31 AO 82 46 59 AO 78 53 64 Post Procedure Information Blood Pressure: 125/64 mmHg Rhythm: NSR Post procedural instructions were given Closure Device Time Device Success/Fail 12/30/2016 3:24:00 PM Mechanical Compression Successful 12/30/2016 3:26:00 PM Mechanical Compression Successful Site Checks Time Location Status Staff Sheath In? Note 03:26 PM Rt Groin No bleeding/hematoma Se Perez RT (R) 03:26 PM Rt Wrist No bleeding/hematoma Se Perez RT (R) Pulses Time Site Pre-Procedure Post-Procedure Note 12/30/2016 2:45:00 PM Bilateral DP & PT 2+ 12/30/2016 2:46:00 PM Rt Radial 2+ 3:25:00 PM Bilateral DP & PT 2+ Updated by Rosa Yusuf RN on 12/30/2016 3:42:25 PM Rosa Yusuf RN electronically signed on 12/30/2016 3:43:02 PM with status of Final
--- NOTE | 2016-12-30 15:50 | Event Note ---
Date of Encounter: 12/30/16 Time of Encounter: 15:45 - Cardiology Event Note Per discussion with Dr. Valenzuela, no significant lesions requiring intervention. Recommend medical management and risk factor modification. Will s/o, re-consult as needed, follow up as outpatient scheduled.
--- NOTE | 2016-12-30 16:51 | Discharge Summary ---
Date of Encounter: 12/30/16 Time of Encounter: 09:30 (and 1600) - Discharge Diagnosis (1) Chest pain Priority: Primary Status: Ruled-out (2) Abnormal stress test Priority: Primary Status: Ruled-out Comments: Heart catheter without intervention. Risk factor modification. (3) HTN (hypertension) Priority: Secondary Status: Chronic Comments: Controlled, follow-up outpatient (4) HLD (hyperlipidemia) Priority: Secondary Status: Chronic Comments: Lipid panel unremarkable however LDL is greater than 75, statin is indicated, patient is on statin, will continue. Low-cholesterol diet Qualifiers: Hyperlipidemia type: unspecified Qualified Code(s): E78.5 - Hyperlipidemia , unspecified (5) Asthma Priority: Secondary Status: Chronic Comments: Is on Singulair, Qvar, and albuterol as needed at home. During this admission, patient's aeration improved greatly with DuoNeb treatments as well as prednisone. We will send on a short burst of prednisone and add Symbicort to his regimen (6) FERNANDEZ (dyspnea on exertion) Priority: Primary Status: Resolved - Discharge Medications Prescriptions: Budesonide/Formoterol 160/4.5 [Symbicort 160/4.5] 1 puff IH BIDR #1 hfa.aer.ad Isosorbide MONOnitrate (24 HR) [Imdur] 30 mg PO DAILY #30 predniSONE [PredniSONE] 40 mg PO DAILY #8 tab Home Medications: Albuterol Sulfate [Albuterol Inhaler] 2 puff IH Q4-6H PRN 12/29/16 [History] Aspirin [Lo-Dose Aspirin EC] 81 mg PO DAILY 12/29/16 [History] Cholecalciferol (D-3) [Vitamin D] 5,000 unit PO DAILY 12/29/16 [History] Levothyroxine [Synthroid] 150 mcg PO DAILY 12/29/16 [History] Lisinopril [Zestril] 5 mg PO DAILY 12/29/16 [History] Montelukast [Singulair] 10 mg PO DAILY 12/29/16 [History] Simvastatin [Zocor] 20 mg PO QPM 12/29/16 [History] sulfaSALAzine [Sulfasalazine] 500 mg PO BID 12/29/16 [History] Budesonide/Formoterol 160/4.5 [Symbicort 160/4.5] 1 puff IH BIDR #1 hfa.aer.ad 12/30/16 [Rx] Isosorbide MONOnitrate (24 HR) [Imdur] 30 mg PO DAILY #30 12/30/16 [Rx] predniSONE [PredniSONE] 40 mg PO DAILY #8 tab 12/30/16 [Rx] Allergies/Adverse Reactions: Allergies No Known Allergies Allergy (Verified 12/29/16 02:45) Procedures/tests Complete & Pending: Procedures Performed prior 72 hours Category Date Time Status CL Cardiac Catheterization [CL] Routine Platform Engineer 12/30/16 10:32 Ordered ECG 12 lead ECG [ECG] Routine Y 12/30/16 05:09 Completed Date of admission: 12/29/16 04:48 Primary care physician: Paul Vu MD Consults: cardiology consulted Discharging clinician: Deirdre Goins Anticipated date of discharge: 12/30/16 - Patient Status Disposition: Home, Self-Care Condition: Good Functional capacity at discharge: independent ambulation Overall status at discharge: patient is back to baseline - Discharge Instructions Follow Up With: Paul Vu MD [Primary Care Provider] - 01/03/17 3:00 pm (Web requested an appoinment, will call with a time and date) Additional Instructions: Follow-up with primary care provider as scheduled. Stop Qvar and start Symbicort (the symbicort has another medication in the same class as the QVAR, but with another medication as well). - Diet and Activity Activity: increase activity as tolerated Diet: low fat, low cholesterol, low salt diet Hospital course: Mr. Lee is a 61 year old male with past medical history of asthma, hypertension, hyperlipidemia. Patient presented to the emergency department chief complaint of chest pain. Patient reported feeling chest discomfort associated with shortness of breath on the day prior to presentation when he was walking while working. He described it as a heaviness sensation with aching afterwards. It lasted approximately one hour. Workup in the emergency department unremarkable. EKG was sinus tachycardia. Chest x-ray negative. Patient was admitted to the hospitalist service for further evaluation and management. Troponins negative 2. Patient had an exercise nuclear stress test that revealed an ejection fraction greater than 70% with occasional PACs and a short 8 beat run of atrial tachycardia during recovery. There was also evidence of TID. Patient continued to endorse squeezing and tightness in his chest so cardiology was brought on board who proceeded with a left heart catheter. Per cardiology, left heart catheter report without any significant lesions that required intervention and recommendation was for medical management and risk factor modification. He was also started on Imdur which helped his chest pressure. His asthma was also addressed as his breath sounds were decreased and he had diffuse expiratory wheezing. At home, patient is currently on Qvar, albuterol, and Singulair. Singulair and albuterol were continued and his beclomethasone was changed over to Symbicort with budesonide and formoterol so that he can have a LABA added to his regimen. He was also started on a short burst of prednisone. His aeration improved greatly on day of discharge and he stated he no longer had chest pressure. He was discharged home in stable condition with close outpatient follow-up with recommended. ITS Impressions Chest X-Ray 12/29/16 02:45 IMPRESSION: 1. Mild left basilar atelectasis. 2. No other cardiopulmonary disease. D/ / Yousuf Seals MD / Yousuf Seals MD Interpreting Provider: Yousuf Seals MD Exercise nuclear stress impression: Perfusion imaging was negative for ischemia or infarct. SDS-0. Exercise capacity was average. Normal hemodynamic response. Patient had chest pain with stress. Gated ejection fraction is greater than 70%. The LV is not dilated. Exercise ECG was negative for diagnostic ischemia with baseline LVH. Occasional PACs and a short 8 beat run of atrial tachycardia during recovery. There is evidence of TID. Patient's left ventricular hypertrophy and the use of motion correction of rest images with qualitative TID of 2 (with qualitative TID) unlikely to be accurate. However, if clinical suspicion persists, particularly with ongoing symptoms, please consider cardiology referral. - Time Spent with Patient Total time spent providing and/or coordinating discharge services: - Constitutional Vitals: Temp Pulse Resp BP Pulse Ox 97.7 F 77 17 113/68 93 12/30/16 16:14 12/30/16 16:14 12/30/16 16:14 12/30/16 16:14 12/30/16 16:14 General appearance: Present: A&O X 3, pleasant, no acute distress, answers questions appropriately - Head Head exam: Present: atraumatic, normocephalic - Eye Eye exam: Present: PERRL, conjuntiva pink, sclera anicteric Pupils: Present: PERRL - Neck Neck exam general surgery: Present: supple, trachea midline. Absent: lymphadenopathy - Respiratory Respiratory exam: Present: decreased breath sounds (improved aeration on day of discharge). Absent: accessory muscle use, rales, respiratory distress, rhonchi , wheezes - Cardiovascular Cardiovascular exam: Present: RRR, +S1, +S2. Absent: diastolic murmur, gallop, rubs, systolic murmur - GI/Abdominal GI/Abdominal exam: Present: normal bowel sounds, soft, no peritoneal signs. Absent: distended, tenderness - Extremities Exam Extremities exam: Present: warm, radial pulses palpable and symetrical. Absent : calf tenderness, cyanotic, pedal edema - Neurological Exam Neurological exam: Present: alert, CN II-XII intact, normal gait, oriented X3, no focal deficits, strengths equal and symetr throughout. Absent: pronater drift, facial droop, speech deficit - Skin Skin exam: Present: dry, intact, normal color, warm
--- NOTE | 2016-12-30 17:04 | Electrocardiograph Report ---
[place] [address] Test Date: 2016-12-29 Pat Name: Kim Lee Department: 102 Room: 3B Gender: M Instrument And Electrical Technician: : 1955 Requested By: Elli See Order Number: [id number] Reading MD: Td Valenzuela MD Measurements Intervals [place] Rate: 106 P: 55 PA: 166 QRS: 49 QRSD: 84 T: 27 QT: 304 QTc: 366 Interpretive Statements SINUS TACHYCARDIA Electronically Signed On 12-30-2016 17:02:59 EDT by Td Valenzuela MD
--- NOTE | 2016-12-30 18:25 | Electrocardiograph Report ---
[address] [address] Test Date: 2016-12-30 Pat Name: Kim Lee Department: 113 Room: 3B Gender: M Pollution Control Technician: : 1955 Requested By: Deirdre Goins Order Number: [id number] Reading MD: Td Valenzuela MD Measurements Intervals [place] Rate: 76 P: 53 GA: 160 QRS: 27 QRSD: 95 T: 14 QT: 384 QTc: 414 Interpretive Statements SINUS RHYTHM EARLY REPOLARIZATION Electronically Signed On 12-30-2016 18:23:52 EDT by Td Valenzuela MD
[2016-12-30 19:45] VITALS: BP 104/61
--- NOTE | 2017-01-01 19:18 | Invasive Diagnostic Lab ---
Name: Kim Lee Date of Study: 12/30/2016 Date: 1955 Ht: 173.0 cm /68.1 in Medical Record#: [id number] Age: 61 Wt: 92. kg / 202.83 lb Account/Order#: [id number] Gender: Male BSA: 2.06 Order #: [id number] Fluoro Dose: 231 mGy BMI: 30.74 Procedure Physician: Td Valenzuela MD, [facility] Referring MD: Referring MD: Procedures Performed: LEFT HEART CATH Right upper extremity angiogram Indications: Abnormal Test - Stress, Chest pain, Inability to pass catheters through right subclavian for [facility] Impressions: Mild atherosclerotic coronary artery disease. The left ventricle is normal and has normal contractility EF 55% Right Subclavian occlusion with collaterals Recommendations: Optimal medical therapy of patient's disease. Aggressive risk factor modification. History/Risk Factors: asthma depression Chest pain Hypertension Dyslipidemia Procedure Access obtained in the right Femoral artery by percutaneous puncture. Initially access obtained in right radial artery by percutaneous puncture. Unable to pass catheters through right subclavian. Angiogram was completed via tiger catheter in the right subclavian using 7 cc of contrast. Complications: None Contrast: Isovue 79ml Hemodynamics: Pressures Site Systolic/ A Wave Diastolic/ V Wave End Diastolic/ Mean HR AO 82 54 66 86 AO 80 57 68 90 LV 103 -5 44 99 LV 107 27 31 134 AO 82 46 59 122 AO 78 53 64 93 LV Ventriculography Ejection Method: LV Gram Ejection Fraction: 55% Wall Motion: GRIGSBY Anterobasal Normal Anterolateral Normal Apical: Normal Inferoapical Normal Inferobasal Normal Coronary Dominance: right Lesion Findings/Interventions * Left Main Coronary Artery The LMCA is angiographically free of disease. * Left Anterior Descending The LAD is angiographically free of disease. The 1st Diagonal is angiographically free of disease. * Circumflex The Circumflex is angiographically free of disease. The 1st Marginal is angiographically free of disease. * Right Coronary Artery There is a 30% stenosis in the Proximal RCA. The lesion has a FEDERICO flow of 3. There is a 40% stenosis in the Mid RCA. The lesion has a FEDERICO flow of 3. Right subclavian - occluded with collaterals. No significant disease seen in the right vertebral. Updated by Rosa Yusuf RN on 12/30/2016 3:37:32 PM Td Valenzuela MD, FACC electronically signed on 01/01/2017 7:12:52 PM with status of Final
== END 2016-12-30 19:45 | disposition home or self-care (01) ==
LOC: 3BNU 02:37 → EMEROO 02:37 → 3BNU 04:59
PROVIDERS: ADMIT Internal Medicine; ATTEND Nurse Practitioner Family